=== PATIENT | female | born 1985 | race Caucasian/White ===

== ENCOUNTER 2021-10-16 20:13 | Emergency (ER) | payer MEDICAID ==
[~2021-10-16] VITALS: Ht 165.1 cm; Wt 89.8 kg
[2021-10-16 20:39] VITALS: BP 124/73
[2021-10-16] MEDS ORDERED: ACETAMINOPHEN 325MG TABLET PO ONE (22:15)
[2021-10-16 22:40] LABS: CLARITY URINE CLEAR (CLEAR); COLOR URINE YELLOW (YELLOW); KETONES URINE NEGATIVE (NEGATIVE); LEUKOCYTE ESTERASE URINE 1+ (NEGATIVE); NITRITE URINE NEGATIVE (NEGATIVE); OCCULT BLOOD URINE NEGATIVE (NEGATIVE); PROTEIN URINE NEGATIVE (NEGATIVE); SPECIFIC GRAVITY URINE 1.004 (1.005-1.030); UROBILINOGEN URINE 0.2 E.U./dL (0.2-1.0)
[2021-10-17] LABS: BASOPHILS % 0.2 % (0.0-2.0); LYMPHOCYTES % 8.2 % (20.0-50.0); MEAN CORPUSCULAR HEMOGLOBIN 26.9 pg (28.0-32.0); MEAN CORPUSCULAR VOLUME 80.8 fL (81.0-99.0); MEAN PLATELET VOLUME 7.4 fl (7.4-10.4); MONOCYTES % 7.9 % (2.0-8.0); NEUTROPHILS % 83.7 % (40.0-76.0); PLATELET 381 x1000/uL (130-400); RED BLOOD CELL COUNT 3.71 mill/uL (4.2-5.4); RED CELL DISTRIBUTION WIDTH 16.8 % (11.6-14.6)
[2021-10-17 00:03] LABS: CHLORIDE 106 mEq/L (98-107)
[2021-10-17 00:06] LABS: HCG SCREEN NEGATIVE
[2021-10-17] MEDS ORDERED: CIPR-263 MT (00:49)
[2021-10-17] MEDS ORDERED: CEFTRIAXONE 1 G PREMIX 50 ML IV ONE (01:00)
== END 2021-10-17 02:09 | disposition home or self-care (01) ==
LOC: ER 20:13
DX: N10 Acute pyelonephritis (principal); N20.0 Calculus of kidney
CPT/HCPCS: 36415; 74176; 76830; 76856; 80053; 81003; 84703; 85025; 93976; 96374; 99284; J0696